=== PATIENT | male | born 1995 ===

== ENCOUNTER 2017-01-16 21:53 | Emergency (ER) | payer OTHER ==
[~2017-01-16] VITALS: Ht 167.6 cm; Wt 67.9 kg
[2017-01-16 22:07] VITALS: TEMP 37; Ht 167.6 cm; Wt 67.9 kg
[2017-01-16] MEDS ORDERED: PHEN-622 PO (22:31)
[2017-01-16] MEDS ORDERED: DEXT1CAP8 PO (22:32)
[2017-01-16] MEDS ORDERED: XYLOCAINE 1%/SOD BICARB 20 ML VIAL INFIL STA (22:35)
[2017-01-16] MEDS ORDERED: CHLORHEXIDINE GLUCONATE 0.12% 480 ML MT STA (22:35)
--- NOTE | 2017-01-16 23:43 | EMERGENCY ROOM VISIT NOTE ---
ED Visit Note First contact with patient: 22:30 Chief Complaint: "Bit Tongue" History of Present Illness: This patient is a 21 year old male who presents to the Emergency Department via private vehicle for evaluation of their tongue laceration. Patient sustained the laceration this evening around 8pm while participating in intramural soccer at [employer] [facility] [employer]. He was struck in the jaw by another player accidentally. He notes minimal pain in the anterior lower jaw and minimal tongue pain. He states he came to be evaluated because of the large tongue laceration. They report a moderate amount of bleeding initially for about 10 minutes. They report no loss of consciousness. They deny any headache, visual disturbance, nausea, vomiting, or neck pain. Jaw pain 2/10. Patient's Tetanus status is currently up-to-date. Medications: As noted below Allergies: NKDA PMH: No pertinent. SHx: Pt. is a [employer] Student. ROS: All pertinent positive and negative review of systems are appropriately documented in the History of Present Illness. Physical Exam: VITAL SIGNS - Vital signs and nursing notes were reviewed. Stable. GENERAL -21-year-old male appearing his stated age. Communicates well with provider and answers questions appropriately. SKIN - There is a 2 cm laceration noted on the left anterior portion of the tongue. The edges gape apart with traction. There is no active bleeding appreciated. No deep structures including vessels, musculature, or bony structures are appreciated. HEAD - Normocephalic. No Taylor's Sign or Raccoon's Eyes. No depressed skull fractures palpable. No jaw tenderness. No facial tenderness. EYES - PERRL with EOMI bilaterally. Without subconjunctival hemorrhage. Palpebral conjunctiva pink and moist with no injection. EARS - No deformities of external structures noted on gross examination bilaterally. No hemotympanum present. No tympanic perforation noted. NOSE - Midline and without cyanosis. No epistaxis or clear watery discharge noted. Septum midline without deviation. No septal hematoma noted. No overlying ecchymosis noted. MOUTH/OROPHARYNX - Without perioral cyanosis. Tongue midline with equal elevation of palate bilaterally. No blood noted in the oropharynx. No tonsillar hypertrophy, erythema, or exudates noted. No dental fractures noted. NECK - FROM assessed. No tenderness to palpation over the cervical spinous processes. No cervical paraspinal muscle tenderness noted. LUNGS - Chest wall symmetric without accessory muscle use, intercostals retractions, or central cyanosis. Normal vesicular breath sounds CTA B/L. No wheezes, rales, or rhonchi appreciated. CARDIAC - RRR with S1/S2. No murmur, rubs, or gallops appreciated. EXTREMITIES - No gross deformities noted of the extremities. NEUROLOGIC - Cranial nerves II through XII grossly intact. Sensory intact to light touch throughout. PSYCH - A&Ox3 and cooperates fully with examiner. Pt is very pleasant and interacts well with examiner. ED Course: Patient was seen and evaluated by myself. Patient had no focal neurological deficits. Patient's exam is otherwise unremarkable. Patient reports no headaches , visual disturbances, nausea, vomiting, or over-lethargy. Risks and benefits of performing primary wound closure versus no repair were discussed with the patient who verbalizes understanding. Verbal consent was obtained prior to performing the procedure. 4 cc of 1% buffered lidocaine was used to anesthetize the tongue laceration. The wound was cleansed and prepped in the typical sterile fashion utilizing normal saline. Once proper anesthetization was established, the wound was further examined and demonstrated a linear well approximated laceration. The wound was copiously irrigated with normal saline and Betadine. The wound was closed using 1 simple, 6-0 vicryl sutures with the wound edges being well approximated. Patient tolerated the procedure well. No complications were met. He was given Peridex mouthwash. He is to use his twice daily. Patient educated on worrisome symptoms for return visit to the Emergency Department. Patient discharged to home in good condition. The patient was offered imaging of his face but declined. I believe this is appropriate. In evaluation treatment this patient the following differential diagnoses were entertained: Facial fracture, tongue laceration, among others. Current/Historical Medications Scheduled PRN Wvzhwlbinhteckuw-Kcuezbulzl-Ef (Vicks Nyquil Cold & Flu), 1 CAP PO HS PRN for COUGH/COLD Cozawfkgfcmuj-Gb-Op W/ Apap (Vicks Dayquil Severe Cold), 1 TAB PO BID PRN for COUGH/COLD Allergies Coded Allergies: No Known Allergies (Unverified , 01/16/17) Vital Signs Date Time Temp Pulse Resp B/P Pulse Ox O2 Delivery O2 Flow Rate FiO2 01/17/17 00:06 85 16 122/80 98 4/3/17 22:07 37.0 93 18 122/80 97 Room Air Medications Administered Medications (Trade) Dose Ordered Sig/Shun Route Start Time Stop Time Status Last Admin Dose Admin Chlorhexidine Gluconate (Peridex Oral Soln) 15 ml NOW STAT MT 01/16/17 22:35 01/16/17 22:36 DC 01/16/17 23:18 15 ML Departure Information Impression Primary Impression: Laceration Dispostion Home / Self-Care Condition GOOD Referrals [facility] (PCP) Patient Instructions My [facility] Additional Instructions Discharge Instructions: You have received 1 suture on your tongue. This will dissolve in your tongue should heal well. Please using mouthwash twice daily as directed until the bottle is gone. Look for signs of infection of the wound including: increased pain, swelling, foul discharge, streaking, or increased temperature. If any of these are noticed you should return to the Emergency Department for further assessment and treatment. As with any laceration you may have received nerve damage to the surrounding tissues. This damage may or may not be permanent. For pain control, you can use the following [id number]-[id number] medicines (if >12 yo): - Regular strength (325mg/tab) Tylenol (acetaminophen) 2 tabs every 4-6 hours as needed. Do not exceed 12 tablets in a 24 hour period. Avoid taking more than 4 grams (4000 mg) of Tylenol per day. This includes any other sources of acetaminophen you may take on a regular basis. - Regular strength (200 mg/tab) Advil (ibuprofen) 1-2 tabs every 4-6 hours as needed. Do not exceed a dose of 3200 mg per day. Return to the emergency department if your symptoms worsen despite treatment course outlined above. Please return to the emergency department with any new/concerning symptoms.
[2017-01-17 00:06] VITALS: BP 122/80; PULSE 85; O2SAT 98
== END 2017-01-17 00:07 | disposition home or self-care (01) ==
LOC: C.EDB 21:56 → C.EDD 01-17 00:07
DX: S01.512A Laceration without foreign body of oral cavity, initial encounter (principal); W50.0XXA Accidental hit or strike by another person, initial encounter; Y93.66 Activity, soccer